=== PATIENT | male | born 1955 | race Two or more races ===

== ENCOUNTER 2016-06-27 17:41 | Inpatient (IN) | payer MEDICAID ==
[~2016-06-27] VITALS: Ht 160 cm; Wt 94.2 kg
[2016-06-27] MEDS ORDERED: IPRATROPIUM BROM 0.5 MG/2.5ML INH SOL NEB ONE ×2 (18:00→21:30)
[2016-06-27] MEDS ORDERED: ALBUTEROL SULF 2.5 MG/0.5ML(0.5%) NEB SOLN NEB ONE ×2 (18:00→21:30)
[2016-06-27] MEDS ORDERED: methylPREDNISolone SOD SUCC 125 MG/2 ML VL IV ONE (19:15)
[2016-06-27 19:39] LABS: Basophils # (auto) 0 uL; Basophils % (auto) 0.4 % (0.0-2.0); Eosinophils # (auto) 0 uL; Hematocrit 46.9 % (41.0-53.0); Hemoglobin 15.1 g/dL (13.5-17.5); Lymphocytes # (auto) 1.4 uL; Lymphocytes % (auto) 15.1 % (10.0-50.0); Mean Corpuscular Hemoglobin 32.7 pg (28.0-32.0); Mean Corpuscular Hgb Conc. 32.2 g/dL (32.0-36.0); Mean Corpuscular Volume 101.5 fL (80.0-100.0); Mean Platelet Volume 9.8 fL (7.4-10.4); Monocytes # (auto) 0.7 uL; Monocytes % (auto) 7.5 % (0.0-12.0); Neutrophils # (auto) 7.1 uL; Platelet Count (auto) 146 10^3/uL (140-450); Red Cell Distribution Width 14.9 % (11.6-16.0); White Blood Cell 9.3 10^3/uL (4.4-10.8)
[2016-06-27 20:20] LABS: Albumin 3.4 g/dL (3.4-5.0); BUN/Creatinine Ratio 9.9; Calcium 8.1 mg/dL (8.5-10.1); Magnesium 2.1 mg/dL (1.6-2.6)
[2016-06-27 20:22] LABS: Total Protein 7.8 g/dL (6.4-8.2)
[2016-06-27 20:42] LABS: Potassium 2.8 mmol/L (3.5-5.1)
[2016-06-27 20:46] LABS: B-Type Natriuretic Peptide 465.55 pg/mL (0-100); Temperature: 22.7 C (20.0-25.0)
[2016-06-27] MEDS ORDERED: POTASSIUM CHL 20 Meq TABLET PO ONE ×3 (21:00→22:30)
[2016-06-27 21:24] LABS: Partial Thromboplastin Time 30.3 sec (22.64-33.71); Prothrombin Time 12.2 sec (9.37-12.3)
[2016-06-27 21:35] LABS: INR 1.18 (0.9-1.15)
[2016-06-27] MEDS ORDERED: FUROSEMIDE 20 MG/2 ML VIAL IV ONE (22:30)
[2016-06-28] MEDS ORDERED: ALBU18 (00:16)
[2016-06-28] MEDS ORDERED: ATEN50TA PO (00:16)
[2016-06-28] MEDS ORDERED: FURO40TA4 PO (00:16)
[2016-06-28] MEDS ORDERED: ALBU1.257 (00:16)
[2016-06-28] MEDS ORDERED: CHOL20009 (00:17)
[2016-06-28] MEDS ORDERED: QUET400T12 PO (00:19)
[2016-06-28] MEDS ORDERED: IBUP600T27 PO (00:20)
[2016-06-28] MEDS ORDERED: QUET50TA PO (00:20)
[2016-06-28] MEDS ORDERED: ARIP20TA5 PO (00:21)
[2016-06-28] MEDS ORDERED: POTA10TA79 PO (00:23)
[2016-06-28] MEDS ORDERED: PROMETHAZINE HCL 25 MG/ML 1ML IV PRN (07:30)
[2016-06-28] MEDS ORDERED: ALBUTEROL SULF 2.5 MG/0.5ML(0.5%) NEB SOLN NEB PRN (07:30)
[2016-06-28] MEDS ORDERED: NITROGLYCERIN 0.4 MG SL TAB SL PRN (07:30)
[2016-06-28] MEDS ORDERED: MORPHINE SULF INJ 2 MG/ML SYRINGE 1ML IV PRN ×2 (07:30)
[2016-06-28] MEDS ORDERED: ACETAMINOPHEN 500 MG TAB PO PRN (07:30)
[2016-06-28] MEDS ORDERED: TEMAZEPAM 15 MG CAP PO PRN (07:30)
[2016-06-28] MEDS ORDERED: LORazepam 0.5 MG TAB PO PRN (07:30)
[2016-06-28] MEDS ORDERED: HYDROcodone-ACET 5/325MG TAB PO PRN (07:30)
[2016-06-28] MEDS ORDERED: LACTULOSE 20Gm/30ML SOLN PO PRN ×2 (07:30)
[2016-06-28] MEDS ORDERED: OSELTAMIVIR 75 MG CAP PO ONE (07:45)
[2016-06-28 09:57] VITALS: BP 154/99
[2016-06-28] MEDS: ARIPIPRAZOLE 20 MG PO SCH (10:00)
[2016-06-28] MEDS: ENOXAPARIN SOD 40 MG/0.4 ML SYRINGE SC SCH (10:45)
[2016-06-28] MEDS: POTASSIUM CHL 20 Meq TABLET PO SCH (10:46)
[2016-06-28] MEDS: ENALAPRIL MALEATE 2.5 MG TAB PO SCH (10:46)
[2016-06-28] MEDS: FUROSEMIDE 40 MG/4 ML VIAL IV SCH (10:46)
[2016-06-28] MEDS: QUEtiapine FUMARATE 100 MG TAB PO SCH ×2 (10:47→22:10)
[2016-06-28] MEDS: ATENOLOL 50 MG TAB PO SCH (10:47)
[2016-06-28] MEDS: CARVEDILOL 3.125 MG TAB PO SCH ×2 (10:48→22:12)
[2016-06-28] MEDS ORDERED: ENOXAPARIN SOD 60 MG/0.6 ML SYRINGE SC ONE (12:30)
[2016-06-28 13:00] VITALS: BP 141/82
[2016-06-28] MEDS ORDERED: IOHEXOL 350 MG/ML 100ML IJ ONE (14:03)
[2016-06-28] MEDS: LEVOFLOXACIN 500MG 100 ML IV SCH (15:17)
[2016-06-28] MEDS: methylPREDNISolone SOD SUCC 40 MG/ML VL IV SCH ×2 (15:22→18:25)
[2016-06-28] MEDS: SODIUM CHLOR 0.9% PF (SALINE LOCK) 10ML VIAL IV SCH ×2 (15:23→22:12)
[2016-06-28] MEDS: IPRATROPIUM BROM 0.5 MG/2.5ML INH SOL NEB SCH ×2 (15:33→18:22)
[2016-06-28] MEDS: ALBUTEROL SULF 2.5 MG/0.5ML(0.5%) NEB SOLN NEB SCH ×2 (15:33→18:22)
[2016-06-28 17:00] VITALS: BP 122/65
[2016-06-28] MEDS ORDERED: THIAMINE HCL 100 MG/ML 2ML VIAL IV ONE (19:45)
[2016-06-28 20:00] VITALS: BP 141/89
[2016-06-28 21:16] VITALS: BP 122/65
[2016-06-28] MEDS ORDERED: QUETIAPINE FUMERATE 400 MG PO SCH (22:00)
[2016-06-28 22:05] VITALS: BP 141/89
[2016-06-28] MEDS: OSELTAMIVIR 75 MG CAP PO SCH (22:09)
[2016-06-29] VITALS (8 sets, daily range): BP systolic 121–138; BP diastolic 53–79
[2016-06-29] MEDS: IPRATROPIUM BROM 0.5 MG/2.5ML INH SOL NEB SCH ×4 (00:53→19:03)
[2016-06-29] MEDS: ALBUTEROL SULF 2.5 MG/0.5ML(0.5%) NEB SOLN NEB SCH ×3 (00:53→19:03)
[2016-06-29] MEDS: chlordiazePOXIDE HCL 5 MG CAP PO SCH ×4 (02:15→17:58)
[2016-06-29 05:54] LABS: Basophils # (auto) 0 uL; Basophils % (auto) 0.1 % (0.0-2.0); DEFINITIVE VIEW TRANSMISSION; Eosinophils # (auto) 0 uL; Hematocrit 49.1 % (41.0-53.0); Hemoglobin 15.5 g/dL (13.5-17.5); Lymphocytes % (auto) 10.5 % (10.0-50.0); Mean Corpuscular Hemoglobin 32.3 pg (28.0-32.0); Mean Corpuscular Hgb Conc. 31.7 g/dL (32.0-36.0); Mean Corpuscular Volume 101.8 fL (80.0-100.0); Mean Platelet Volume 9.8 fL (7.4-10.4); Monocytes # (auto) 0.3 uL; Monocytes % (auto) 2.5 % (0.0-12.0); Neutrophils # (auto) 8.7 uL; Neutrophils % (auto) 86.9 % (37.0-80.0); Platelet Count (auto) 153 10^3/uL (140-450); Red Cell Distribution Width 15.1 % (11.6-16.0)
[2016-06-29] MEDS: methylPREDNISolone SOD SUCC 40 MG/ML VL IV SCH ×4 (05:58→17:58)
[2016-06-29] MEDS: SODIUM CHLOR 0.9% PF (SALINE LOCK) 10ML VIAL IV SCH ×2 (06:04→14:00)
[2016-06-29 06:38] LABS: Albumin 3.3 g/dL (3.4-5.0); BUN/Creatinine Ratio 36.8; Calcium 8.7 mg/dL (8.5-10.1); Potassium 3.5 mmol/L (3.5-5.1); Total Protein 7.6 g/dL (6.4-8.2)
[2016-06-29 07:09] LABS: B-Type Natriuretic Peptide 259.99 pg/mL (0-100); Temperature: 22.2 C (20.0-25.0)
[2016-06-29] MEDS ORDERED: THIAMINE HCL 100 MG/ML 2ML VIAL IV SCH (10:00)
[2016-06-29] MEDS: QUEtiapine FUMARATE 100 MG TAB PO SCH (10:16)
[2016-06-29] MEDS: POTASSIUM CHL 20 Meq TABLET PO SCH (10:17)
[2016-06-29] MEDS: CARVEDILOL 3.125 MG TAB PO SCH ×2 (10:18→22:08)
[2016-06-29] MEDS: ATENOLOL 50 MG TAB PO SCH (10:18)
[2016-06-29] MEDS: ENALAPRIL MALEATE 2.5 MG TAB PO SCH (10:19)
[2016-06-29] MEDS: OSELTAMIVIR 75 MG CAP PO SCH (10:19)
[2016-06-29] MEDS: ENOXAPARIN SOD 40 MG/0.4 ML SYRINGE SC SCH (10:20)
[2016-06-29] MEDS: FUROSEMIDE 40 MG/4 ML VIAL IV SCH (10:20)
[2016-06-29] MEDS: LEVOFLOXACIN 500MG 100 ML IV SCH (10:21)
[2016-06-29] MEDS: ARIPIPRAZOLE 20 MG PO SCH (10:37)
== END 2016-06-29 22:50 | disposition home or self-care (01) | DRG 140 ==
LOC: EDUNIT# 17:41 → ER 17:46 → TELE 17:47 → TELE-WESTW 06-28 08:47 → TELE-E-ADS 06-28 08:49 → TELE-WESTW 06-28 09:35 → WEST WING 06-29 21:40
PROVIDERS: ADMIT Internal Medicine; ATTEND Internal Medicine
DX: J44.0 Chronic obstructive pulmonary disease with (acute) lower respiratory infection (principal); J18.1 Lobar pneumonia, unspecified organism; I11.0 Hypertensive heart disease with heart failure; I50.9 Heart failure, unspecified; J20.9 Acute bronchitis, unspecified; R09.02 Hypoxemia; J44.1 Chronic obstructive pulmonary disease with (acute) exacerbation; F32.9 Major depressive disorder, single episode, unspecified; F17.210 Nicotine dependence, cigarettes, uncomplicated; E87.6 Hypokalemia; J45.909 Unspecified asthma, uncomplicated; Z88.6 Allergy status to analgesic agent; Z88.5 Allergy status to narcotic agent; Z98.890 Other specified postprocedural states
CPT/HCPCS: 36415; 36600; 71010; 71275; 80053; 80061; 82550; 82805; 83735; 83880; 84443; 84484; 85025; 85379; 85610; 85652; 85730; 86141; 87040; 94640; 96365; 96372; 96375; J1956

== ENCOUNTER 2018-03-11 07:31 | Day surgery (SDC) | payer MEDICAID ==
[~2018-03-11] VITALS: Ht 160 cm; Wt 92.1 kg
[~2018-03-11 07:31] MED LIST: ALBU1.257; ALBU18; ARIP1TAB7 PO; ATEN50TA PO; CHOL20009; FURO40TA4 PO; IBUP600T27 PO; POTA10TA79 PO; QUET400T12 PO; QUET50TA PO
[2018-03-11] MEDS ORDERED: ANGIOMAX 250 MG VIAL IV ONE (08:15)
[2018-03-11] MEDS ORDERED: fentaNYL CITRATE 100 MCG/2 ML VL ONE (08:15)
[2018-03-11] MEDS ORDERED: SODIUM CHL 0.9% 0 ML ONE (08:15)
[2018-03-11] MEDS ORDERED: MIDAZOLAM HCL 1MG/1ML-2 ML VIAL ONE (08:15)
[2018-03-11] MEDS ORDERED: VERAPAMIL 2.5MG/ML INJ 2ML VIAL IV ONE (08:15)
[2018-03-11] MEDS ORDERED: LIDOCAINE 2%HCL (LOCAL ANESTH.) INJ 20ML MDV ONE (08:22)
[2018-03-11] MEDS ORDERED: IODIXANOL 320MG/ML 100ML BTL IV ONE (08:22)
[2018-03-11] MEDS ORDERED: HEPARIN SODIUM (PORCINE) 5000 UNITS/ML 1ML VIAL ONE (08:34)
== END 2018-03-11 11:05 | disposition home or self-care (01) ==
LOC: CATH 07:31
PROVIDERS: ATTEND Internal Medicine
DX: R93.49 Abnormal radiologic findings on diagnostic imaging of other urinary organs (principal); J44.9 Chronic obstructive pulmonary disease, unspecified; F10.99 Alcohol use, unspecified with unspecified alcohol-induced disorder; I11.0 Hypertensive heart disease with heart failure; E78.5 Hyperlipidemia, unspecified; F17.210 Nicotine dependence, cigarettes, uncomplicated; Z88.6 Allergy status to analgesic agent; Z88.5 Allergy status to narcotic agent; Z82.49 Family history of ischemic heart disease and other diseases of the circulatory system
CPT/HCPCS: 93458; C1769; C1894; J1644; J3010; J7030; 99152; A6257; J2250; Q9967

== ENCOUNTER 2021-01-05 13:49 | Emergency (ER) | payer MEDICAID, OTHER ==
[~2021-01-05] VITALS: Ht 160 cm; Wt 77.1 kg
[~2021-01-05 13:49] MED LIST changes: +POTA10TA32 PO; -POTA10TA79 PO
[2021-01-05 18:03] VITALS: BP 144/81
== END 2021-01-05 18:04 | disposition home or self-care (01) ==
LOC: EDBD 13:49 → ER 13:49 → EDUNIT# 13:49 → ER 18:04
DX: S22.42XA Multiple fractures of ribs, left side, initial encounter for closed fracture (principal); F41.9 Anxiety disorder, unspecified; F17.210 Nicotine dependence, cigarettes, uncomplicated; I11.0 Hypertensive heart disease with heart failure; I50.9 Heart failure, unspecified; J45.909 Unspecified asthma, uncomplicated; Z88.6 Allergy status to analgesic agent; W18.39XA Other fall on same level, initial encounter; Y93.89 Activity, other specified; Y92.89 Other specified places as the place of occurrence of the external cause; Y99.8 Other external cause status
CPT/HCPCS: 71250